=== PATIENT | female | born 1985 | race Caucasian/White ===

== ENCOUNTER 2024-11-26 18:43 | Emergency (ER) | payer BC ==
[~2024-11-26] VITALS: Ht 160 cm; Wt 56.7 kg
[2024-11-26 19:27] LABS: *BILIRUBIN,URIN NEGATIVE (NEGATIVE); *BLOOD, URINE NEGATIVE (NEGATIVE); *CLARITY,URINE CLEAR (CLEAR); *COLOR,URINE YELLOW (YELLOW); *KETONES,URINE TRACE (NEGATIVE); *PROTEIN,URINE NEGATIVE (NEGATIVE); *UROBILINOGEN,URINE 0.2 E.U./dl (NORMAL); LEUKOCYTE ESTERASE ,URINE NEGATIVE (NEGATIVE); NITRITE, URINE NEGATIVE (NEGATIVE); PLATELET COUNT (AUTO) 407 K/uL (179-408); RED BLOOD CELL COUNT(AUTO) 4.01 MIL/uL (3.63-4.92); RED CELL DISTRIBUTION WIDTH 15.6 % (12.3-17.7); UGLUCOSE NEGATIVE (NEGATIVE); WHITE BLOOD COUNT (AUTO) 6.1 K/uL (3.8-11.8)
[2024-11-26 19:30] LABS: *URINE HCG, QUAL NEGATIVE (NEGATIVE)
[2024-11-26 19:33] LABS: CREATININE 0.8 mg/dL (0.6-1.3); SODIUM SERUM 144.0 mmol/L (136-145); UREA NITROGEN, BLOOD 12.0 mg/dL (7-18)
[2024-11-26 19:40] LABS: ASPARTATE AMINOTRANSFERASE 14.0 U/L (15-37); TOTAL PROTEIN, SERUM 7.7 g/dL (6.4-8.2)
[2024-11-26] MEDS ORDERED: IV NORMAL SALINE 250 ML IV ONE (20:32)
[2024-11-26] MEDS ORDERED: IOHEXOL 300MG/ML 100 ML INFUS..BTL ONE (20:32)
[2024-11-26] MEDS ORDERED: SWABABLE VALVE TRANSFER SET EA MC ONE (20:32)
[2024-11-26 20:40] VITALS: BP 124/65; O2SAT 98
== END 2024-11-26 21:00 | disposition left against medical advice (07) ==
LOC: ER 18:52
DX: K92.1 Melena (principal); R10.30 Lower abdominal pain, unspecified; R42 Dizziness and giddiness
CPT/HCPCS: 99285; 74177; 80053; 81001; 84703; 83690; 85025; 85610; 85730; 36415; Q9967; A4606; A4663